=== PATIENT | female | born 1985 | race African-American/Black ===

== ENCOUNTER 2019-07-26 17:26 | Emergency (ER) | payer OTHER ==
[2019-07-26] MEDS ORDERED: FLEXERIL PO (21:03)
[2019-07-26 21:10] VITALS: BP 138/77
== END 2019-07-26 21:10 | disposition home or self-care (01) | DRG 552 ==
LOC: ED 17:26
DX: S16.1XXA Strain of muscle, fascia and tendon at neck level, initial encounter (principal); S39.012A Strain of muscle, fascia and tendon of lower back, initial encounter; I10 Essential (primary) hypertension; V43.63XA Car passenger injured in collision with pick-up truck in traffic accident, initial encounter

== ENCOUNTER 2019-08-22 22:23 | Emergency (ER) | payer OTHER ==
[~2019-08-22] VITALS: Ht 167.6 cm; Wt 85.0 kg
[~2019-08-22 22:23] MED LIST: FLEXERIL PO
[2019-08-23 01:00] LABS: HEMATOCRIT 40.9 % (37.0-47.0); HEMOGLOBIN 13.3 g/dl (12.0-16.0); IMMATURE GRANULOCYTES 0.7 % (0.0-5.0); MEAN CELL VOLUME 85.9 fL CALC (80.0-100.0); MEAN CORPUSCULAR HGB 27.9 pG CALC (26.0-32.0); MEAN CORPUSCULAR HGB CONC 32.5 g/dL CAL (32.0-36.0); NEUT# 8.72 thou/uL (2.00-7.15); RED BLOOD COUNT 4.76 mill/uL (4.20-5.60); RED CELL DISTRI WIDTH 15.1 % (11.5-15.5)
[2019-08-23 01:13] LABS: ALBUMIN 4.6 g/dL (3.2-5.0); ALKALINE PHOSPHATASE 113 u/l (38-126); ANION GAP 13 (6-22 (CALC)); BILIRUBIN, TOTAL 0.4 mg/dL (0.0-1.4); BUN 8 mg/dL (7-17); BUN/CREATININE RATIO 10 (12-20 (CALC)); CARBON DIOXIDE 23 mmol/l (22-30); CHLORIDE 107 mmol/l (95-108); CREATININE 0.8 mg/dL (0.5-1.0); GFR > 60 ML/MIN (>=60 (CALC)); GFR FOR AFR.AMER. > 60 ML/MIN (>=60 (CALC)); POTASSIUM 3.5 mmol/l (3.5-5.1); SGOT/AST 51 u/l (14-36); SODIUM 139 mmol/l (137-146); TOTAL PROTEIN 8.1 g/dL (6.3-8.2)
[2019-08-23 02:47] LABS: URINE BILIRUBIN - DIPSTICK NEGATIVE (NEGATIVE); URINE BLOOD DIPSTICK NEGATIVE (NEGATIVE); URINE COLOR YELLOW; URINE GLUCOSE - DIPSTICK NEGATIVE (NEGATIVE); URINE KETONE 15 mg/dL (NEGATIVE); URINE LEUK ESTERASE NEGATIVE (Negative); URINE NITRITE - DIPSTICK NEGATIVE (Negative); URINE PROTEIN - DIPSTICK TRACE mg/dL (NEG-TRACE); URINE SPECIFIC GRAVITY >=1.030; URINE UROBILINOGEN - DIPSTICK 0.2 E.U./dL (0.2)
[2019-08-23 02:48] LABS: URINE CLARITY HAZY
[2019-08-23 03:39] VITALS: BP 211/108
[2019-08-23] MEDS ORDERED: LORTAB 5/3255 MG PO (03:43)
[2019-08-23] MEDS ORDERED: LISINOP/HCTZ1 TA1 PO (03:43)
[2019-08-23] MEDS ORDERED: VOLTAREN - GENE75 MG PO (03:43)
== END 2019-08-23 04:06 | disposition home or self-care (01) | DRG 552 ==
LOC: ED 22:23
PROVIDERS: Family Medicine
DX: S22.039A Unspecified fracture of third thoracic vertebra, initial encounter for closed fracture (principal); S22.049A Unspecified fracture of fourth thoracic vertebra, initial encounter for closed fracture; S22.079A Unspecified fracture of T9-T10 vertebra, initial encounter for closed fracture; S70.01XA Contusion of right hip, initial encounter; S20.211A Contusion of right front wall of thorax, initial encounter; S30.1XXA Contusion of abdominal wall, initial encounter; F17.290 Nicotine dependence, other tobacco product, uncomplicated; V58.6XXA Passenger in pick-up truck or van injured in noncollision transport accident in traffic accident, initial encounter